=== PATIENT | female | born 1955 | race African-American/Black ===

== ENCOUNTER 2017-03-09 11:52 | Day surgery (SDC) | payer MEDICARE, MEDICAID ==
[~2017-03-09] VITALS: Ht 154.9 cm; Wt 47.7 kg
--- NOTE | ~2017-03-09 | OP ---
PATIENT NAME: SHOBHA SCOTT MEDICAL RECORD: [id number] :51 LOCATION:[facility] ADMISSION DATE: SURGEON: NATY KUNZ DO DATE OF OPERATION: 03/09/2017 PROCEDURE: Colonoscopy with polypectomy. INDICATIONS FOR PROCEDURE: Family history of colon cancer, abnormal weight loss, abdominal pain, last colonoscopy performed on 09/13/2012. SCOPE: Olympus video pediatric colonoscope. MEDICATIONS: Propofol 260 mg IV per anesthesia. WITHDRAWAL TIME: 40 minutes. ESTIMATED BLOOD LOSS: Minimal. COMPLICATIONS: None. FINDINGS: Informed consent was given. The patient was made comfortable with the above medication. After reaching an adequate level of sedation by slow IV push, the patient was placed on her left side. A digital rectal examination was performed and was normal. The endoscope was then advanced under direct visualization through the rectum to the cecum with visualization of the appendiceal orifice and ileocecal valve. The scope was slowly withdrawn and mucosa was carefully examined. The prep was inadequate for good visualization of all segments of the colon. The ascending colon and transverse colon were not visualized well due to the poor prep. In the cecum, there was a single benign-appearing sessile polyp measuring approximately 4 mm in diameter which was removed using hot forceps. In the ascending colon, there was a benign-appearing sessile polyp measuring approximately 3-4 mm in diameter removed using hot forceps. In the descending and sigmoid colon, there were benign-appearing sessile polyps which ranged in size from 3 to 5 mm in diameter. They were both removed using hot forceps. Retroflexion was not performed as the patient has a very shallow rectal vault. There were no obvious hemorrhoids visualized on forward viewing. There were no other abnormalities visualized on this examination. Scope was then withdrawn from the patient. The patient tolerated the procedure well and there were no complications. IMPRESSIONS: 1. Multiple polyps as described above, removed using hot forceps. 2. Inadequate prep for complete visualization of the entire colon. PLAN AND RECOMMENDATIONS: 1. Discharge home when recovery parameters are met. 2. Follow up biopsy specimen results. 3. Recall colonoscopy within a year due to the inadequate prep on today's examination with polyps visualized and removed, as well as the family history. 4. Continue current diet. 5. Continue current medications. TRANSINT:[id number] Voice Confirmation ID: [id number] DOCUMENT ID: [id number] OPERATIVE REPORT [id number] SHOBHA SCOTT NATHAN A DO CC: [id number] DICTATION DATE: 03/09/17 1602 MAT INSPECTOR: 03/10/17 0001 [facility] 03/09/17 [id number] [place] [address]
[2017-03-09 13:00] LABS: BASOPHILS 1.5 % (0-2); EOSINOPHILS 4.8 % (0-7); HEMATOCRIT 38.1 % (36.0-48.0); HEMOGLOBIN 13.2 g/dL (12-16); IMMATURE GRANULOCYTES 0.2 % (0-5); LYMPHOCYTES 31.1 % (15-50); MCHC 34.6 g/dL (31.0-37.0); MCV 83.7 fL (80.0-100.0); MEAN PLATELET VOLUME 10.5 fL (7.4-10.4); MONOCYTES 5.6 % (2-11); NEUTROPHILS 56.8 % (40-80); RBC 4.55 10x6/uL (4.00-5.40); RDW 14.6 % (11.5-14.5); WBC 5.9 10x3/uL (4.8-10.8)
[2017-03-09 13:18] LABS: CALC OSMOLALITY 283 mosm/kg (275-300); CALCIUM 9.9 mg/dL (8.5-10.1); CARBON DIOXIDE 30.6 mmol/L (21.0-32.0); CHLORIDE - SERUM 103 mmol/L (98-107); CREATININE - SERUM 0.5 mg/dL (0.6-1.3); GLUCOSE 63 mg/dL (74-106); POTASSIUM - SERUM 3.9 mmol/L (3.5-5.1); SODIUM 144 mmol/L (136-145); UREA NITROGEN 10 mg/dL (7-18); eGFR NON AFRICAN AMERICAN > 90 mL/min (90-120)
[2017-03-09 13:39] LABS: PLATELET COUNT 246 10x3/uL (130-400)
[2017-03-09] MEDS ORDERED: PROAIR HFA8.5 GM INH (14:26)
[2017-03-09] MEDS ORDERED: HYDROCODON-ACE1 EAC7 PO (14:26)
[2017-03-09] MEDS ORDERED: SYMBICORT 80-10.2 GM INH (14:26)
[2017-03-09] MEDS ORDERED: ASPIRIN EC81 M1 PO (14:27)
[2017-03-09] MEDS ORDERED: OMEPRAZOLE40 MG PO (14:27)
[2017-03-09] MEDS ORDERED: ZANAFLEX4 MG PO (14:28)
[2017-03-09 14:36] VITALS: BP 114/72; Ht 154.9 cm; Wt 47.7 kg
== END 2017-03-09 17:33 | disposition home or self-care (01) ==
LOC: D.OPS 11:52
PROVIDERS: Anesthesiology
DX: D12.2 Benign neoplasm of ascending colon (principal); D12.0 Benign neoplasm of cecum; D12.4 Benign neoplasm of descending colon; D12.5 Benign neoplasm of sigmoid colon; F17.200 Nicotine dependence, unspecified, uncomplicated; J45.909 Unspecified asthma, uncomplicated; J44.9 Chronic obstructive pulmonary disease, unspecified; K21.9 Gastro-esophageal reflux disease without esophagitis; Z80.0 Family history of malignant neoplasm of digestive organs; R63.4 Abnormal weight loss

== ENCOUNTER 2017-03-17 09:56 | Day surgery (SDC) | payer MEDICARE, MEDICAID | END 2017-03-17 13:45 | disposition home or self-care (01) | LOC: D.OPS 09:56 | DX: R10.13 Epigastric pain (principal); K22.70 Barrett's esophagus without dysplasia; K21.9 Gastro-esophageal reflux disease without esophagitis; J44.9 Chronic obstructive pulmonary disease, unspecified; Z01.812 Encounter for preprocedural laboratory examination ==